=== PATIENT | female | born 1950 | race Caucasian/White ===

== ENCOUNTER → 2018-02-27 | Outpatient (CLI) | payer MEDICARE ==
[~2018-02-27] MED LIST: BUSPAR10 MG PO; HYDROCODONE-AP1 EAC1 PO; Z SEROQUEL PO; Z.0.HYDROCHLOROTH12. PO; Z.0.LISINOPRIL40 MG PO; Z.0.MOBIC15 MG; Z.0.PRAVACHOL40 MG PO; Z.0.PROZAC40 MG PO; Z.0.SOMA350 MG PO; Z.1.RANITIDINE HCL30
--- NOTE | 2018-03-19 08:46 | Diagnostic Imaging Report ---
#[id number] - MGSCRBIL #BILATERAL DIGITAL SCREENING MAMMOGRAM WITH CAD: 02/27/2018 CLINICAL: Routine screening. Comparison is made to exam dated: 09/27/2015 mammogram - [facility]. Current study contains 4 films. There are scattered fibroglandular elements in both breasts. Current study was also evaluated with a Computer Aided Detection (CAD) system. There are benign calcifications in both breasts. There also are benign densities in both breasts. There is a mole marker on both breasts. No significant masses, calcifications, or other findings are seen in either breast. There has been no significant interval change. IMPRESSION: BENIGN There is no mammographic evidence of malignancy. A 1 year screening mammogram is recommended. The patient will be notified by letter of the results. Garcia james/katlin:03/18/2018 12:16:01 [employer]: Meli SOTO)([place]), [facility] letter sent: Compared to Prior B9 Mammogram BI-RADS: 2 Benign
== END ==
LOC: MAMMO 12:35
PROVIDERS: ATTEND Family Medicine
DX: Z12.31 Encounter for screening mammogram for malignant neoplasm of breast (principal)
CPT/HCPCS: 77067

== ENCOUNTER → 2018-05-09 | Outpatient (CLI) | payer MEDICARE ==
--- NOTE | 2018-05-09 12:24 | Diagnostic Imaging Report ---
EXAMINATION: MRI of the lumbar spine without contrast HISTORY: Low back pain radiating to the lower extremities with numbness and weakness, spondylosis and radiculopathy. COMPARISON: None available TECHNIQUE: Sagittal T1, T2, STIR; axial T2 and proton density. FINDINGS: It is assumed that there are 5 lumbar vertebrae. Curvature/Alignment: Mild straightening of the lumbar lordosis. Mild thoracal lower thoracic flow series from T10 to T12, secondary to interbody fusion of T10 and T11 and partial anterior fusion at T11-T12. Subtle right-sided lumbar curvature. Vertebrae: No evidence of recent fracture, infection, or neoplasm. Chronic endplate degenerative changes at L1-L2 and L4-L5 with minimal Modic type I endplate degenerative changes and subchondral bone marrow edema adjacent to the superior endplate of L4. Shallow Schmorl nodes from T12 to L3. Conus: Normal, terminating at L1-L2 Cauda equina: Unremarkable. Lower thoracic: As above Paraspinal soft tissues: Unremarkable. Degenerative changes: L1-L2: Symmetric disc bulge and facet arthrosis. No significant stenoses. L2-L3: Mild symmetric disc for which an facet arthrosis. Mild foraminal narrowing mainly on the left. L3-L4: Symmetric disc bulge, ligamenta flava thickening and facet arthrosis. Minimal anterolisthesis. No significant foraminal stenosis. Minimal canal narrowing. At L3-L4. L4-L5: Mild symmetric disc bulge, ligamenta flava thickening and prominent facet arthrosis. No canal or foraminal stenosis. Minimal right greater than left facet joint effusion, minimal bone marrow edema, periarticular swelling likely related to degenerative synovitis. L5-S1: Symmetrically visible. Severe bilateral facet arthrosis. Bilateral facet joint effusion, bone marrow edema extending to the right L5 pedicle and minimal periarticular swelling with small posterior synovial cysts, related to degenerative synovitis mainly on the right side. IMPRESSION: 1. Grade 1 degenerative spondylolisthesis at L3-L4. 2. Prominent facet arthrosis with degenerative facet synovitis mainly on the right side at L5-S1 and to a lesser extent at L4-L5. 3. Partially visualized lower thoracic spine interbody fusion with mild kyphotic malalignment. 4. Mild multilevel degenerative changes from L1-L2 to L5-S1 without significant spinal canal or foraminal stenoses. 5. Mild Modic Type 1 endplate degenerative changes at L4. Signed by: Dr. Benita Armendariz M.D. on 05/09/2018 12:21 PM
--- NOTE | 2018-05-09 12:29 | Diagnostic Imaging Report ---
EXAMINATION: MRI of the cervical spine without contrast HISTORY: Neck pain radiating to the upper extremities with numbness and weakness COMPARISON: None available TECHNIQUE: Sagittal T1, T2, STIR; axial T2, gradient echo. FINDINGS: Curvature: Normal lordosis. Vertebrae: No evidence of neoplasm, infection, or fracture. Chronic endplate degenerative changes at C5-C6 and C6-C7 Foramen magnum: No mass, Chiari malformation, or basilar invagination. Spinal Cord: Normal size and signal intensity. Soft Tissues: Unremarkable. Degenerative changes: C1-C2: Unremarkable. C2-C3: Prominent facet arthrosis seen on the left side. Moderate left foraminal stenoses. C3-C4: Minimal visible, prominent facet arthrosis mainly on the left. Mild left foraminal narrowing. C4-C5: Small disc osteophyte complex formation, bilateral uncovertebral and facet arthrosis. Minimal bilateral foraminal narrowing. C5-C6: Disc osteophyte complex formation, bilateral uncovertebral and facet arthrosis minimally in the right side. Moderate right foraminal stenoses. C6-C7: Asymmetric to left disc osteophyte, uncovertebral and facet arthrosis. Severe left foraminal stenosis, compression upon the exiting left C7 nerve root cannot be excluded. C7-T1: Bilateral facet arthrosis without stenosis. IMPRESSION: 1. Degenerative foraminal stenoses as follows; severe left at C6-C7, moderate right at C5-C6, moderate left at C2-C3. 2. Multilevel spondylosis otherwise without significant spinal canal stenosis. Signed by: Dr. Benita Armendariz M.D. on 05/09/2018 12:26 PM
== END ==
LOC: MRI 10:06
PROVIDERS: ATTEND Family Medicine
DX: M47.812 Spondylosis without myelopathy or radiculopathy, cervical region (principal)
CPT/HCPCS: 72141; 72148

== ENCOUNTER → 2019-04-27 | Outpatient (CLI) | payer MEDICARE ==
--- NOTE | 2019-04-27 14:56 | Diagnostic Imaging Report ---
MRI SPINE CERVICAL WO HISTORY: Cervical radiculopathy COMPARISON: MRI of the cervical spine 05/09/2018 TECHNIQUE: Sagittal T1, sagittal T2, sagittal inversion recovery, axial T2, axial T1, and axial T2 GRE weighted MR images of the cervical spine were obtained without intravenous contrast. DISCUSSION: Alignment: Normal lordosis. No scoliosis. Vertebrae: No definite evidence for fractures, infection, or neoplasm. Cervicomedullary junction: No abnormalities. Spinal cord: Normal in signal and morphology from the foramen magnum through T3-T4. Soft tissues: There is a subcentimeter T2 hyperintense nodule in the left thyroid lobe; no further imaging is indicated. Mild to moderate multilevel disc degeneration is most prominent at C5-C6 and C6-C7. C2-C3: Mild to moderate left foraminal stenosis due to uncovertebral and facet arthrosis. No significant canal or right foraminal stenosis. C3-C4: Mild left foraminal stenosis due to uncovertebral and facet arthrosis. No significant canal or right foraminal stenosis. C4-C5: Mild bilateral foraminal stenoses due to uncovertebral and facet arthrosis. No significant canal stenosis. C5-C6: Mild canal stenosis due to posterior disc osteophyte complex and ligamentum flavum thickening. Moderate right and mild left foraminal stenoses due to uncovertebral and facet arthrosis. C6-C7: Mild canal stenosis due to posterior disc osteophyte complex and ligamentum flavum thickening. Mild to moderate right and severe left foraminal stenoses due to uncovertebral and facet arthrosis. C7-T1: Patent canal and foramina. IMPRESSION: 1. Mild to moderate multilevel disc degeneration, most prominent at C5-C6 and C6-C7. 2. Multilevel degenerative foraminal stenoses - mild to moderate on the left at C2-C3; moderate on the right at C5-C6; mild to moderate right and severe left at C6-C7. 3. Mild degenerative canal stenoses at C5-C6 and C6-C7. Signed by: Dr. Arturo Tuttle M.D. on 04/27/2019 2:53 PM
== END ==
LOC: MRI 10:52
PROVIDERS: ATTEND Family Medicine
DX: M54.12 Radiculopathy, cervical region (principal)
CPT/HCPCS: 72141

== ENCOUNTER → 2020-04-19 | Day surgery (SDC) | payer MEDICARE ==
[2020-04-15 12:58] LABS: BASOPHILS % 0.6 % (0.0-1.0); EOSINOPHILS # (AUTO) 0.2 (0.0-0.4); EOSINOPHILS % 3.5 % (0.0-6.0); HEMATOCRIT 37.4 % (34.2-44.1); HEMOGLOBIN 12.1 g/dL (12.0-16.0); LYMPHOCYTES # (AUTO) 2.3 (1.0-3.2); LYMPHOCYTES % 36.8 % (18.0-39.1); MEAN CORPUSCULAR HEMOGLOBIN 29.2 pg (28-32); MEAN CORPUSCULAR HGB CONC 32.4 g/dL (31-35); MEAN CORPUSCULAR VOLUME 90.3 fL (81-99); MONOCYTES # (AUTO) 0.5 (0.2-0.8); MONOCYTES % 8.2 % (4.4-11.3); NEUTROPHILS # (AUTO) 3.2 (2.1-6.9); NEUTROPHILS % 50.9 % (38.7-80.0); PLATELET COUNT 422 x10e3/uL (140-360); RED BLOOD COUNT 4.14 x10e6/uL (3.6-5.1); RED CELL DISTRIBUTION WIDTH 14.4 % (11.7-14.4)
[~2020-04-19] MED LIST changes: +ALBUTEROL0.63 MG/3 INH; +ATORVASTATIN CA20 MG PO; +PROPOFOL IV EMULSION 10 MG/ML 20 ML VIAL ONE; +PROTONIX20 MG PO; +SYMBICORT 16010.2 GM INH; +VITAMIN K100 MCG PO
[2020-04-19] MEDS: HYOSCYAMINE 0.125 MG TAB ONE (14:00)
[2020-04-19 16:13] VITALS: BP 115/76
== END | disposition home or self-care (01) ==
LOC: OR 11:02
PROVIDERS: ATTEND Internal Medicine Gastroenterology
DX: Z12.11 Encounter for screening for malignant neoplasm of colon (principal); D12.5 Benign neoplasm of sigmoid colon; D12.4 Benign neoplasm of descending colon; K64.8 Other hemorrhoids; R14.0 Abdominal distension (gaseous); I10 Essential (primary) hypertension; E78.00 Pure hypercholesterolemia, unspecified; F32.9 Major depressive disorder, single episode, unspecified; J45.909 Unspecified asthma, uncomplicated; Z71.3 Dietary counseling and surveillance; Z68.36 Body mass index [BMI] 36.0-36.9, adult; Z01.810 Encounter for preprocedural cardiovascular examination; Z01.812 Encounter for preprocedural laboratory examination; Z20.828 Contact with and (suspected) exposure to other viral communicable diseases; Z79.899 Other long term (current) drug therapy
CPT/HCPCS: 36415; 45385; 85025; 93005; U0002

== ENCOUNTER 2020-07-17 15:11 | Emergency (ER) | payer MEDICARE ==
[~2020-07-17] VITALS: Ht 157.5 cm; Wt 95.3 kg
[~2020-07-17 15:11] MED LIST changes: -PROPOFOL IV EMULSION 10 MG/ML 20 ML VIAL ONE
[2020-07-17] MEDS ORDERED: LIDOCAINE 4% PATCH TP ONE ×2 (15:30→15:40)
== END 2020-07-17 16:06 | disposition home or self-care (01) ==
LOC: ER 15:30
DX: M25.561 Pain in right knee (principal); M17.11 Unilateral primary osteoarthritis, right knee; M54.9 Dorsalgia, unspecified; G89.29 Other chronic pain
CPT/HCPCS: 99283

== ENCOUNTER → 2020-08-01 | Outpatient (CLI) | payer MEDICARE | LOC: MAMMO 13:18 | PROVIDERS: ATTEND Family Medicine | DX: Z12.31 Encounter for screening mammogram for malignant neoplasm of breast (principal) | CPT/HCPCS: 77067 ==

== ENCOUNTER → 2022-01-16 | Outpatient (CLI) | payer MEDICARE | LOC: DX 12:58 | PROVIDERS: ATTEND Nurse Practitioner Gerontology | DX: M81.8 Other osteoporosis without current pathological fracture (principal); Z78.0 Asymptomatic menopausal state | CPT/HCPCS: 77080 ==

== ENCOUNTER → 2022-10-15 | Outpatient (CLI) | payer MEDICARE | LOC: MAMMO 12:46 | PROVIDERS: ATTEND Nurse Practitioner Gerontology | DX: Z12.31 Encounter for screening mammogram for malignant neoplasm of breast (principal) | CPT/HCPCS: 77067 ==

== ENCOUNTER → 2023-06-03 | Outpatient (REF) | payer MEDICARE | LOC: MRI 12:41 | PROVIDERS: ATTEND Neurological Surgery | DX: M50.120 Mid-cervical disc disorder, unspecified level (principal) ==

== ENCOUNTER → 2024-12-07 | Outpatient (REF) | payer MEDICARE ==
[~2024-12-07] MED LIST changes: +FAMOTIDINE20 MG PO; +HYDROCODON-ACE1 EA12 PO; +LORATADINE10 MG PO; +MYRBETRIQ25 MG PO; +NASAL SPRAY NS; +TRAZODONE HCL100 MG PO; +[UNRECOGNIZED DRUG - OTHER] INH
== END ==
LOC: US 13:46
PROVIDERS: ATTEND Urology
DX: N39.0 Urinary tract infection, site not specified (principal)
CPT/HCPCS: 74018; 76770; 76857